=== PATIENT | female | born 1975 | race Two or more races ===

== ENCOUNTER 2019-05-11 09:17 | Outpatient (CLI) | payer OTHER | END 2019-05-11 09:27 | disposition home or self-care (01) | LOC: LAB 09:17 | DX: J11.1 Influenza due to unidentified influenza virus with other respiratory manifestations (principal); R05 Cough ==

== ENCOUNTER 2020-02-06 10:51 | Outpatient (CLI) | payer OTHER | END 2020-02-06 10:56 | disposition home or self-care (01) | LOC: LAB 10:51 | DX: N93.8 Other specified abnormal uterine and vaginal bleeding (principal); N95.1 Menopausal and female climacteric states ==

== ENCOUNTER 2020-02-06 12:13 | Outpatient (CLI) | payer OTHER | END 2020-02-06 12:15 | disposition home or self-care (01) | LOC: MAMO-SONO 12:13 | DX: Z12.31 Encounter for screening mammogram for malignant neoplasm of breast (principal); Z87.898 Personal history of other specified conditions; N93.8 Other specified abnormal uterine and vaginal bleeding; N60.11 Diffuse cystic mastopathy of right breast; N60.12 Diffuse cystic mastopathy of left breast ==

== ENCOUNTER 2020-03-05 08:53 | Outpatient (CLI) | payer OTHER | END 2020-03-05 09:16 | disposition home or self-care (01) | LOC: RAD 08:53 | PROVIDERS: ATTEND General Practice | DX: S30.0XXA Contusion of lower back and pelvis, initial encounter (principal); S90.01XA Contusion of right ankle, initial encounter ==

== ENCOUNTER → 2020-05-19 08:22 | Outpatient (CLI) | payer OTHER | END | disposition home or self-care (01) | LOC: LAB 08:22 | PROVIDERS: ATTEND Specialist | DX: D50.8 Other iron deficiency anemias (principal) ==

== ENCOUNTER 2020-06-04 10:54 | Outpatient (CLI) | payer OTHER | END 2020-06-04 10:58 | disposition home or self-care (01) | LOC: LAB 10:54 | PROVIDERS: ATTEND Specialist | DX: D50.8 Other iron deficiency anemias (principal) ==

== ENCOUNTER 2020-06-10 09:00 | Outpatient (CLI) | payer OTHER | END 2020-06-10 15:00 | disposition home or self-care (01) | LOC: PPH VACUNA 09:00 | DX: Z23 Encounter for immunization (principal) ==

== ENCOUNTER 2020-08-18 12:52 | Outpatient (CLI) | payer OTHER | END 2020-08-18 15:00 | disposition home or self-care (01) | LOC: LAB 12:52 | DX: Z20.828 Contact with and (suspected) exposure to other viral communicable diseases (principal); Z11.59 Encounter for screening for other viral diseases ==